=== PATIENT | female | born 1980 | race Caucasian/White ===

== ENCOUNTER 2016-02-28 14:01 | Emergency (ER) | payer MEDICAID ==
[~2016-02-28] VITALS: Ht 180.3 cm; Wt 68.0 kg
[2016-02-28 15:39] LABS: Basophils # (auto) 0 uL; Basophils % (auto) 0.7 % (0.0-2.0); Eosinophils # (auto) 0.1 uL; Eosinophils % (auto) 1.8 % (0.0-7.0); Hematocrit 36.3 % (36.0-46.0); Lymphocytes # (auto) 1.8 uL; Lymphocytes % (auto) 32.3 % (10.0-50.0); Mean Corpuscular Hemoglobin 30.5 pg (28.0-32.0); Mean Corpuscular Volume 92.2 fL (80.0-100.0); Mean Platelet Volume 7.7 fL (7.4-10.4); Monocytes # (auto) 0.4 uL; Monocytes % (auto) 6.4 % (0.0-12.0); Neutrophils # (auto) 3.2 uL; Neutrophils % (auto) 58.8 % (37.0-80.0); Platelet Count (auto) 260 10^3/uL (140-450); Red Cell Distribution Width 13.8 % (11.6-16.0); White Blood Cell 5.5 10^3/uL (4.4-10.8)
[2016-02-28 15:58] LABS: Albumin 3.6 g/dL (3.4-5.0); BUN/Creatinine Ratio 9.6; Calcium 8.5 mg/dL (8.5-10.1); Potassium 3.9 mmol/L (3.5-5.1)
[2016-02-28 16:01] LABS: Bilirubin, Total 0.2 mg/dL (0.2-1.0); Total Protein 6.9 g/dL (6.4-8.2)
[2016-02-28] MEDS ORDERED: ACETAMINOPHEN 325 MG TAB PO ONE (23:20)
[2016-02-28 23:30] VITALS: BP 127/80
[2016-02-29] MEDS ORDERED: ACETAMINOPHEN 325 MG TAB PO ONE
== END 2016-02-29 00:25 | disposition home or self-care (01) ==
LOC: ER 14:20
DX: O20.0 Threatened abortion (principal); R79.89 Other specified abnormal findings of blood chemistry
CPT/HCPCS: 36415; 76801; 80053; 84702; 85025

== ENCOUNTER 2016-03-02 05:43 | Emergency (ER) | payer MEDICAID ==
[~2016-03-02] VITALS: Ht 180.3 cm; Wt 68.0 kg
[2016-03-02] MEDS ORDERED: ACETAMINOPHEN 325 MG TAB PO ONE (07:45)
[2016-03-02] MEDS ORDERED: LEVOFLOXACIN 500MG 100 ML IV ONE (08:45)
[2016-03-02] MEDS ORDERED: SODIUM CHLORIDE 0.9% 1,000 ML IV ONE (08:45)
[2016-03-02 09:14] LABS: Basophils # (auto) 0 uL; Basophils % (auto) 0.7 % (0.0-2.0); Eosinophils # (auto) 0 uL; Eosinophils % (auto) 0.9 % (0.0-7.0); Hemoglobin 12.8 g/dL (12.2-16.2); Lymphocytes # (auto) 0.4 uL; Lymphocytes % (auto) 8.5 % (10.0-50.0); Mean Corpuscular Hemoglobin 30.3 pg (28.0-32.0); Mean Corpuscular Hgb Conc. 32.7 g/dL (32.0-36.0); Mean Corpuscular Volume 92.8 fL (80.0-100.0); Mean Platelet Volume 8.1 fL (7.4-10.4); Monocytes # (auto) 0.4 uL; Neutrophils # (auto) 4.1 uL; Neutrophils % (auto) 80.9 % (37.0-80.0); Platelet Count (auto) 243 10^3/uL (140-450); Red Cell Distribution Width 12.7 % (11.6-16.0); SUSPECT VIEW TRANSMISSION; White Blood Cell 4.9 10^3/uL (4.4-10.8)
[2016-03-02 09:26] LABS: BUN/Creatinine Ratio 11.4; Bilirubin, Total 0.2 mg/dL (0.2-1.0); Calcium 9.3 mg/dL (8.5-10.1); Total Protein 7.6 g/dL (6.4-8.2)
[2016-03-02 10:26] VITALS: BP 121/80
== END 2016-03-02 11:17 | disposition home or self-care (01) ==
LOC: ER 05:49
DX: O03.4 Incomplete spontaneous abortion without complication (principal); O46.91 Antepartum hemorrhage, unspecified, first trimester; Z88.1 Allergy status to other antibiotic agents
CPT/HCPCS: 36415; 76801; 80053; 84702; 85025; 96365; 99285; J1956; J7030